=== PATIENT | female | born 1940 | race African-American/Black ===

== ENCOUNTER 2021-01-21 11:50 | Emergency (ER) | payer OTHER ==
[~2021-01-21] VITALS: Ht 172.7 cm; Wt 72.6 kg
[2021-01-21] MEDS ORDERED: NACL 0.9% 1,000 ML IV ONE (12:05)
--- NOTE | 2021-01-21 12:05 | NUR ---
RECEIVED A 80/F FROM EMS FOR A SYNCOPAL EPISODE. PT IS UNABLE TO RECALL EVENT, STATING "I FELT FAINT THEN I PASSED OUT" PT NOW IS ALERT TO NAME, BIRTHDAY, PLACE, EVENT. NO NEURO DEFECITS NOTED. ANSWERING CRISTIAN. AT BEDSIDE.
[2021-01-21 12:06] VITALS: BP 159/83
--- NOTE | 2021-01-21 12:15 | NUR ---
EKG PERFORMED AT BEDSIDE. EKG READS SINUS RHYTHM @ 56
[2021-01-21 12:33] LABS: BASOPHILS % (AUTO) 0.9 % (0.0-2.0); EOSINOPHILS # (AUTO) 0.1 K/uL (0-0.4); EOSINOPHILS % (AUTO) 1.7 % (0.0-4.0); HEMATOCRIT 33.3 % (36-48); HEMOGLOBIN 10.9 g/dL (12.0-16.0); LYMPHOCYTES # (AUTO) 1.7 K/uL (2.5-16.5); LYMPHOCYTES % (AUTO) 33.1 % (20.5-51.1); MEAN CORPUSCULAR HEMOGLOBIN 27 pg (27-31); MEAN CORPUSCULAR HGB CONC 33 g/dL (33-37); MEAN CORPUSCULAR VOLUME 82.4 fL (80-94); MONOCYTES # (AUTO) 0.6 K/uL (0.8-1.0); MONOCYTES % (AUTO) 10.7 % (1.7-9.3); NEUTROPHILS # (AUTO) 2.8 K/uL (1.8-7.7); NEUTROPHILS % (AUTO) 53.6 % (42.2-75.2); PLATELET COUNT (AUTO) 247 K/uL (140-450); RED BLOOD CELL COUNT(AUTO) 4.04 MIL/uL (4.20-5.40); RED CELL DISTRIBUTION WIDTH 16.2 % (11.6-13.7); WHITE BLOOD COUNT (AUTO) 5.2 K/uL (4.8-10.8)
[2021-01-21 12:45] LABS: ALBUMIN 3.1 g/dL (3.4-5.0); ANION GAP 8.8 (8-16); ASPARTATE AMINOTRANSFERASE 25 U/L (15-37); CARBON DIOXIDE 28.8 mmol/L (21-32); CHLORIDE 107 mmol/L (98-107); CREATININE 1.4 mg/dL (0.6-1.3); GLUCOSE 98 mg/dL (74-106); POTASSIUM 3.6 mmol/L (3.5-5.1); SODIUM SERUM 141 mmol/L (136-145); TOTAL BILIRUBIN 0.2 mg/dL (0.0-1.0); UREA NITROGEN, BLOOD 26 mg/dL (7-18)
--- NOTE | 2021-01-21 13:45 | NUR ---
NO ACUTE CHANGES IN CONDITION.
--- NOTE | 2021-01-21 14:00 | NUR ---
BED MCKINNEY PLACED FOR URINE COLLECTION
--- NOTE | 2021-01-21 14:12 | NUR ---
Allyson wright in [facility] - 01/21/21 at 1437 by [facility] AT BEDSIDE. PT'S ON BEDPAN.
--- NOTE | 2021-01-21 14:37 | NUR ---
PT DID NOT WANT TO COME OFF BED MCKINNEY AT THIS TIME; WILL CONTINU TO MONITOR.
[2021-01-21 14:52] LABS: PROTHROMBIN TIME 10.4 secs (10.8-13.4)
--- NOTE | 2021-01-21 15:15 | NUR ---
# 14 FR Urinary catheter inserted utilizing sterile technique. Immediate return of 800ML CLEAR/YELLOW urine noted. Urine sample collected and sent to lab. Pt tolerated procedure WELL.
--- NOTE | 2021-01-21 15:20 | NUR ---
800CC URINE OUTPUT FROM STRAIGHT CATH -- DR SANTACRUZ AWARE, ORDER FOR INDWELLING URINARY CATH RECEIVED.
--- NOTE | 2021-01-21 15:25 | NUR ---
# 16 FR Iniguez catheter with 10 ml utilizing sterile technique. Immediate return of 100 ml YELLOW urine noted. Bedside drainage bag placed below level of bladder. Urine sample collected and sent to lab. Pt tolerated procedure WELL.
--- NOTE | 2021-01-21 15:30 | NUR ---
DR SANTACRUZ AND THIS LEATHER BELT MAKER AT BEDSIDE SPEAKING WITH PATIENT AND DAUGHTER. DAUGHTER VERBALIZED CONCERN OF PATIENT ACCIDENTALLY REMOVING CRUM CATH AT HOME -- DR SANTACRUZ EXPLAINED RISKS AND BENEFITS OF CRUM CATH. PATIENT AND DAUGHTER REQUESTING REMOVAL. DR SANTACRUZ PROVIDED INSTRUCTIONS TO PT AND DAUGHTER S/S OF URINARY RETENTION AND WHEN TO RETURN TO ED. BOTH PATIENT AND DAUGHTER VERBALIZED UNDERSTANDING. PLAN IS TO REMOVE CRUM AND DISCHARGE.
--- NOTE | 2021-01-21 16:08 | NUR ---
CRUM CATH REMOVED, 10CC NORMAL SALINE BALLOON DEFLATED. PT TOLERATED WELL.
--- NOTE | 2021-01-21 16:15 | NUR ---
IV removed, catheter intact and site benign. Applied folded 4x4 gauze and tape to stop bleeding.
[2021-01-21 16:26] VITALS: BP 147/76
--- NOTE | 2021-01-21 16:27 | NUR ---
Patient discharged with v/s stable. Written and verbal after care instructions given and explained. Patient verbalized understanding. Wheel Chair Assisted to car. All questions addressed prior to discharge. Advised to follow up with PMD.
== END 2021-01-21 16:27 | disposition home or self-care (01) ==
LOC: MED 11:50
DX: R55 Syncope and collapse (principal); N39.0 Urinary tract infection, site not specified
CPT/HCPCS: 36415; 71045; 80053; 81002; 83880; 84484; 85025; 85610; 85730; 93005; 96360; 99285; J7030